=== PATIENT | female | born 1960 | race Caucasian/White ===

== ENCOUNTER 2024-05-27 19:47 | Emergency (ER) | payer OTHER, MEDICAID ==
[~2024-05-27] VITALS: Ht 162.6 cm; Wt 72.6 kg
[2024-05-27 19:59] VITALS: BP 203/136
[2024-05-27 20:04] VITALS: BP 187/86
[2024-05-27] MEDS ORDERED: ACETAMINOPHEN 500 MG TAB PO ONE (20:05)
[2024-05-27] MEDS ORDERED: KETOROLAC TROMETHAMINE 30 MG/ML SDV IV ONE (20:05)
[2024-05-27 20:15] VITALS: BP 176/90
[2024-05-27 22:17] VITALS: BP 178/89
[2024-05-27 22:30] VITALS: BP 159/86
[2024-05-27 23:03] VITALS: BP 159/86
== END 2024-05-27 23:03 | disposition left against medical advice (07) | DRG 552 ==
LOC: ED 19:47
DX: M54.2 Cervicalgia (principal); R07.89 Other chest pain; I10 Essential (primary) hypertension; E11.9 Type 2 diabetes mellitus without complications; V48.6XXA Car passenger injured in noncollision transport accident in traffic accident, initial encounter